=== PATIENT | female | born 1965 | race Caucasian/White ===

== ENCOUNTER 2016-09-17 04:46 | Inpatient (IN) | payer OTHER ==
[2016-09-06 08:25] VITALS: BMI 42.0
--- NOTE | 2016-09-06 08:49 | PAT Medication Instructions ---
Service Date Sep 06, 2016. Current Home Medication List Calcium/Vitamin D (Os-Vladimir 500 Plus D), 1 TAB PO BID Docusate Sodium (Colace), 2 CAP PO BID Fluoxetine (Prozac), 20 MG PO QAM Levothyroxine Sodium (Levothyroxine Sodium), 1 TAB PO AFTERNOON Lisinopril (Zestril), 5 MG PO QAM Magnesium Oxide (Mag-Ox), 1,600 MG PO AFTERNOON Meloxicam (Meloxicam), 15 MG PO QAM Metformin Hcl (Glucophage), 250 MG PO BID Ondansetron Hcl (Zofran), 4 MG PO BID PRN for Nausea Oxycodone Ir (Roxicodone Ir), 1-2 TAB PO Q4H PRN for Severe Pain Sumatriptan Succinate (Imitrex), 100 MG PO PRN PRN for Migraine Tacrolimus (Prograf), 2 TAB PO QAM Tacrolimus (Prograf), 1 MG PO HS Medication Instructions For Your Scheduled Surgery - Hold the following medications 48 hours prior to surgery: Metformin Hcl (Glucophage), 250 MG PO BID - Hold the following medications the morning of surgery: Calcium/Vitamin D (Os-Vladimir 500 Plus D), 1 TAB PO BID Docusate Sodium (Colace), 2 CAP PO BID Lisinopril (Zestril), 5 MG PO QAM Meloxicam (Meloxicam), 15 MG PO QAM - Take the following medications the morning of surgery with a sip of water OTHERWISE NOTHING TO EAT OR DRINK AFTER MIDNIGHT: Tacrolimus (Prograf), 2 TAB PO QAM Fluoxetine (Prozac), 20 MG PO QAM Sumatriptan Succinate (Imitrex), 100 MG PO PRN PRN for Migraine Oxycodone Ir (Roxicodone Ir), 1-2 TAB PO Q4H PRN for Severe Pain (may take if needed up to 4 hours prior to surgery) Ondansetron Hcl (Zofran), 4 MG PO BID PRN for Nausea - Take the following medications as scheduled the evening before surgery: Tacrolimus (Prograf), 1 MG PO HS Levothyroxine Sodium (Levothyroxine Sodium), 1 TAB PO AFTERNOON Calcium/Vitamin D (Os-Vladimir 500 Plus D), 1 TAB PO BID Docusate Sodium (Colace), 2 CAP PO BID Sumatriptan Succinate (Imitrex), 100 MG PO PRN PRN for Migraine Oxycodone Ir (Roxicodone Ir), 1-2 TAB PO Q4H PRN for Severe Pain Ondansetron Hcl (Zofran), 4 MG PO BID PRN for Nausea Magnesium Oxide (Mag-Ox), 1,600 MG PO AFTERNOON If you have any questions please call us at [phone] (Priyanka Pittman PA-C ) or [phone] or [phone]
--- NOTE | 2016-09-06 09:34 | DIAGNOSTIC IMAGING REPORT ---
TWO VIEW CHEST CLINICAL HISTORY: Preoperative examination. FINDINGS: PA and lateral chest radiographs are obtained. No prior studies are available for comparison at the time of dictation. The heart appears enlarged. The mediastinal contour is within normal limits. The pulmonary vasculature is noncongested. There is mild bibasilar atelectasis. The lungs and pleural spaces are otherwise clear. There is no pneumothorax. The skeletal structures are osteopenic. Mild degenerative change is noted throughout the thoracic spine. Surgical clips are seen throughout the upper abdomen. IMPRESSION: Cardiac enlargement with no active disease in the chest. Electronically signed by: Jb Stahl M.D. 09/06/2016 9:32 AM Dictated Date/Time: 09/06/2016 9:29 AM
[2016-09-06 09:39] LABS: BASO % 0.5 %; BASO ABS # 0.02 K/uL (0-0.2); COMPLETE YES; EOS % 6.5 %; HEMATOCRIT 37.3 % (37-47); LYMPH % 25.1 %; LYMPH ABS # 1.09 K/uL (1.2-3.4); MEAN CELL VOLUME 91.2 fL (80-100); MEAN CORPUSCULAR HGB CONC 35.1 g/dl (32-36); MEAN PLATELET VOLUME 10.1 fL (7.4-10.4); MONO % 11.1 %; NEUT % 56.8 %; PLATELET COUNT 135 K/uL (130-400); RED BLOOD COUNT 4.09 M/uL (4.2-5.4); WHITE BLOOD COUNT 4.34 K/uL (4.8-10.8)
[2016-09-06 10:15] LABS: BUN/CREATININE RATIO 8.5 (10-20); CALCIUM 9.5 mg/dl (8.5-10.1); CREATININE 1.3 mg/dl (0.60-1.20); POTASSIUM 4.6 mmol/L (3.5-5.1)
[2016-09-06 10:28] LABS: URINE APPEARANCE CLEAR (CLEAR); URINE BILIRUBIN NEG (NEG); URINE COLOR YELLOW; URINE EPITHELIAL CELL AUTO >30 /lpf (0-5); URINE NITRITE NEG (NEG); URINE PH 6.5 (4.5-7.5); URINE SPECIFIC GRAVITY 1.004 (1.000-1.030); UROBILINOGEN NEG (NEG)
[2016-09-06 10:32] LABS: MANUAL MICROSCOPIC REQUIRED? NO; REVIEW REQ? NO
[~2016-09-17] VITALS: Ht 165.1 cm; Wt 115.0 kg
[2016-09-17] VITALS (17 sets, daily range): BP systolic 112–159; BP diastolic 73–88; PULSE 61–84; TEMP 36.6–37.2; O2SAT 95–99; Ht 165.1 cm; Wt 115.0 kg
[~2016-09-17 04:46] MED LIST: CALC500C70 PO; DOCU-94 PO; FLUO20CA35 PO; GLC/500 PO; LEVO125T4 PO; LISI-729 PO; MAGN400T6 PO; MELO15TA4 PO; ONDA4TAB46 PO; OXYC1TAB3 PO; SUMA100T16 PO; TACR1CAP PO
[2016-09-17] MEDS ORDERED: CeleBREX 200 MG CAP PO SCH (06:00)
[2016-09-17] MEDS ORDERED: PREGABALIN 75 MG CAP PO SCH (06:00)
[2016-09-17] MEDS ORDERED: LACTATED RINGER'S 1000ML 1,000 ML IV SCH (06:00)
[2016-09-17] MEDS ORDERED: SCOPOLAMINE 1.5 MG TDSY TD SCH (06:00)
[2016-09-17] MEDS ORDERED: CEFAZOLIN 2000 MG/60 ML D5W IV SCH (06:00)
[2016-09-17] MEDS ORDERED: DEXAMETHASONE SOD INJ 4 MG/ML VIAL ONE (06:30)
[2016-09-17] MEDS ORDERED: ONDANSETRON INJ 2 MG/ML 2 ML VIAL ONE ×2 (06:30→08:58)
[2016-09-17] MEDS ORDERED: FENTANYL CITRATE INJ 50 MCG/1 ML 2 ML VIAL ONE ×2 (06:31→09:26)
[2016-09-17] MEDS ORDERED: PROPOFOL IV EMULSION 10 MG/ML 20 ML VIAL IV ONE (06:31)
[2016-09-17] MEDS ORDERED: MIDAZOLAM HCL 1 MG/ML 2ML VIAL ONE (06:31)
[2016-09-17] MEDS ORDERED: NEOSTIGMINE METHYLSULFATE 1 MG/ML 10ML VIAL ONE (06:31)
[2016-09-17] MEDS ORDERED: GLYCOPYRROLATE INJ 0.2 MG/ML VIAL ONE ×2 (06:31→08:58)
[2016-09-17] MEDS ORDERED: ROCURONIUM BROMIDE 10 MG/ML 5 ML VIAL ONE (06:31)
[2016-09-17] MEDS ORDERED: ONDANSETRON INJ 2 MG/ML 2 ML VIAL IV PRN ×2 (07:15→10:00)
[2016-09-17] MEDS ORDERED: ATROPINE SULFATE 0.1 MG/ML 5ML SYR IV PRN (07:15)
[2016-09-17] MEDS ORDERED: EpHEDrine SULFATE INJ 50 MG/ML AMP IV PRN (07:15)
--- NOTE | 2016-09-17 07:30 | History and Physical ---
History & Physical Date Sep 17, 2016. Chief Complaint neck pain and L arm pain History of Present Illness The patient is a 50 year old female with complaints of above who failed outpatient treatment over years who desires surgical correction. no myelopathic symptoms. MRI shows C6-7 stenosis, C5-6 DDD. no cord compression. numbness in L arm-intermittent. Past Medical/Surgical History Medical Problems: (1) DDD (degenerative disc disease) liver transplant CLAUDIA erica alpha 1 antitrypsin deficiency lumbar fusion ankle ORIF OA DM type II Additional History Hepatic Disease: No Endocrine Disorder: No Kidney Disease: No Hypertension: Yes Heart Disease: No Bleeding Tendencies: No Infectious Diseases: No Allergies Coded Allergies: Adhesives (Verified Allergy, Mild, RED ITCHY, 09/17/16) Aspartame (Verified Allergy, Mild, SEIZURE, 09/17/16) Perflutren (Verified Allergy, Mild, MASSIVE BACK PAIN, 09/17/16) Propylene Glycol (Verified Allergy, Mild, MASSIVE BACK PAIN, 09/17/16) Home Medications Scheduled Calcium/Vitamin D (Os-Vladimir 500 Plus D), 1 TAB PO BID Docusate Sodium (Colace), 2 CAP PO BID Fluoxetine (Prozac), 20 MG PO QAM Levothyroxine Sodium (Levothyroxine Sodium), 1 TAB PO AFTERNOON Lisinopril (Zestril), 5 MG PO QAM Magnesium Oxide (Mag-Ox), 1,600 MG PO AFTERNOON Meloxicam (Meloxicam), 15 MG PO QAM Metformin Hcl (Glucophage), 250 MG PO BID Tacrolimus (Prograf), 2 TAB PO QAM Tacrolimus (Prograf), 1 MG PO HS Scheduled PRN Ondansetron Hcl (Zofran), 4 MG PO BID PRN for Nausea Oxycodone Ir (Roxicodone Ir), 1-2 TAB PO Q4H PRN for Severe Pain Sumatriptan Succinate (Imitrex), 100 MG PO PRN PRN for Migraine Physical Examination Skin: warm/dry Eyes: normal inspection, sclerae normal ENT: normal ENT inspection Head: normocephalic, atraumatic Neck: supple, trachea midline Respiratory/Chest: lungs clear, no respiratory distress Cardiovascular: regular rate, rhythm Extremities: normal inspection, normal range of motion Neurologic/Psych: no motor/sensory deficits, alert, normal reflexes, oriented x 3 Diagnosis C5-7 stenosis/DDD Plan of Treatment C5-7 ACDF
[2016-09-17 08:23] LABS: PARTIAL THROMBOPLASTIN RATIO 1.1; PROTHROMBIN TIME (PATIENT) 10.9 SECONDS (9.0-12.0)
[2016-09-17] MEDS ORDERED: EpHEDrine SULFATE 50MG/5ML SYR ONE (09:06)
[2016-09-17] MEDS ORDERED: FLOSEAL HEMOSTATIC MATRIX 5ML TOP ONE (09:48)
[2016-09-17] MEDS ORDERED: BACITRACIN 50000 UNIT VIAL IR ONE (09:48)
--- NOTE | 2016-09-17 09:51 | [facility] Post Operative Brief Note ---
Immediate Operative Summary Operative Date Sep 17, 2016. Pre-Operative Diagnosis C5-C7 Degenerative disc disease and stenosis Post-Operative Diagnosis same as preop Procedure(s) Performed C5-C7 Anterior Cervical Discectomy and Fusion with Allograft Surgeon Dr. Bryon Parsons Manager Inventory Surgeon(s) Elliott Souza PA-C Estimated Blood Loss 75ML Findings dict Specimens none
[2016-09-17] MEDS ORDERED: OXYC1TAB3 PO (09:58)
--- NOTE | 2016-09-17 09:59 | Discharge Instructions ---
Discharge Instructions Admission Reason for Admission: Cervical Spinal Stenosis Discharge Discharge Diagnosis / Problem: Cervical Stenosis Discharge Goals Goal(s): Decrease discomfort, Improve function, Increase independence Activity Recommendations Activity Limitations: as noted below Lifting Limitations: no more than 5 pounds Exercise/Sports Limitations: until after follow-up appointment May Resume Sexual Activity: after follow-up appointment Shower/Bathe: may shower/bathe in 3 days . Instructions / Follow-Up Instructions / Follow-Up ACTIVITY RECOMMENDATIONS: SELF CARE INSTRUCTIONS AFTER CERVICAL FUSIONS 1. No smoking. Smoking drastically decreases the chance of a solid fusion. 2. No bending, lifting more than 5 pounds, or twisting (roll like a log when turning in bed). 3. You may shower 3 days after surgery. Thoroughly dry wound. Do not soak in the tub. 4. Cervical collar: Must be worn at all times including sleeping. You may remove the brace only to bath, eat and if you are sitting in a recliner. 5. Please walk as much as you can for exercise. Gradually increase the distance that you walk as your endurance increases. SPECIAL CARE INSTRUCTIONS: VERY IMPORTANT TO READ AND REVIEW A. Do not take any anti-inflammatory medications (i.e. Indocin, Advil, Aspirin, Naprosyn, Aleve, Motrin, etc.) as these may inhibit the chance of a solid fusion. Tylenol is okay to take. B. Your surgical incision has been closed with a cosmetic suture under the skin that will dissolve in about 6 weeks. In 14 days, you can use a pair of clean scissors and cut the suture that is left outside of the skin at the ends of your incision. C. Complications are uncommon, but please contact us if you have any signs or symptoms of: 1. wound infection (fever higher than 102.5 degrees F, redness, separation of wound, drainage, or increasing pain from the incision) 2. blood clots in legs (pain, swelling, redness and warmth in legs) 3. urinary tract infection (fever higher than 102.5 degrees, burning upon urination or increased frequency of urination) 4. nerve problems (inability to walk on your toes or heels, numbness, loss of bowel or bladder control) 5. any other symptoms that concern you. D. Please call the office at if you have any concerns or questions about your operation or recovery. MANAGING PAIN AFTER SPINAL SURGERY 1. Narcotic medication is intended for short-term use and will be provided for surgical pain. Surgical pain usually lasts for a period of 4-6 weeks. Narcotic medication includes Percocet, Vicodin, Darvocet, Tylenol #3 or Lortab. 2. Longer-term pain is more appropriately treated with non-narcotic medication such as Tylenol ES. 3. Muscle spasm is not appropriately treated with narcotics. Muscle relaxers such as Soma, Flexeril or Skelaxin can be used along with Tylenol ES. 4. Remember that we all live with some "aches and pains". This is not unusual or uncommon after an injury or as we get older. 5. We will provide appropriate medication within the normal guidelines of their prescribed use. We will also be very cautious and aware of potential abuse and extended duration of patients' medication needs. 6. Please allow 2-3 days to process refills. Prescriptions will not be mailed but must be picked up at the office. FOLLOW UP VISIT: Keep your scheduled follow-up appointment. Any questions, please call the office at . Current Hospital Diet Patient's current hospital diet: Diabetes Type 2 Diet Discharge Diet Recommended Diet: Regular Diet Procedures Procedures Performed: C5-C7 Anterior Cervical Discectomy and Fusion with Allograft Pending Studies Studies pending at discharge: no Medical Emergencies . Who to Call and When: Medical Emergencies: If at any time you feel your situation is an emergency, please call 911 immediately. . Non-Emergent Contact Non-Emergency issues call your: Surgeon Call Non-Emergent contact if: temperature is above 101, your pain is not controlled, your pain is worsening, your pain is unusual for you, your pain is concerning you . "Provider Documentation" section prepared by Elliott Souza. VTE Core Measure Inpt VTE Proph given/why not?: Abdoulaye Nicole
[2016-09-17] MEDS ORDERED: HYDROmorphone INJ 0.5 MG/0.5 ML SYR IV PRN (10:00)
[2016-09-17] MEDS ORDERED: DEXAMETHASONE INJ 8 MG in SYRINGE 0 ML IV PRN (10:00)
[2016-09-17] MEDS ORDERED: SUMATRIPTAN SUCC TAB 100 MG TAB PO PRN (10:00)
[2016-09-17] MEDS ORDERED: LORAZEPAM INJ 0.5 MG in SYRINGE 0.75 ML IV PRN (10:00)
[2016-09-17] MEDS ORDERED: NALOXONE HCL 0.4 MG/1 ML VIAL/CARP IV PRN (10:00)
[2016-09-17] MEDS ORDERED: RACEPINEPHRINE 2.25% NEBU SOLN 0.5 ML VIAL INH PRN (10:00)
[2016-09-17] MEDS ORDERED: LORAZEPAM 0.5 MG TAB PO PRN (10:00)
[2016-09-17] MEDS ORDERED: DiphenhydrAMINE HCL 50 MG/ML VIAL IV PRN (10:00)
[2016-09-17] MEDS: FENTANYL CITRATE INJ 50 MCG/1 ML 2 ML VIAL IV PRN ×4 (10:10→10:25)
[2016-09-17] MEDS: HYDROmorphone INJ 1 MG/ML SYR IV PRN ×8 (10:30→11:05)
--- NOTE | 2016-09-17 11:07 | Anesthesiology Progress Note ---
Anesthesia Post Op Note Date & Time Sep 17, 2016 at 11:06 Vital Signs Pain Intensity: 4.0 Vital Signs Past 12 Hours Date Time Temp Pulse Resp B/P Pulse Ox O2 Delivery O2 Flow Rate FiO2 09/17/16 10:49 67 16 95 09/17/16 10:49 66 16 09/17/16 10:48 149/94 09/17/16 10:44 65 19 09/17/16 10:44 65 19 93 09/17/16 10:43 147/78 09/17/16 10:39 67 23 93 09/17/16 10:39 68 23 09/17/16 10:38 142/75 09/17/16 10:34 70 13 09/17/16 10:34 70 13 98 09/17/16 10:33 148/77 09/17/16 10:29 69 18 97 09/17/16 10:29 70 18 09/17/16 10:28 145/88 09/17/16 10:24 64 17 09/17/16 10:24 71 17 97 09/17/16 10:23 165/81 09/17/16 10:19 71 16 09/17/16 10:19 72 16 98 09/17/16 10:18 154/103 09/17/16 10:14 70 18 98 09/17/16 10:14 69 18 09/17/16 10:13 161/98 09/17/16 10:09 69 13 09/17/16 10:09 72 13 100 09/17/16 10:08 159/93 09/17/16 10:04 76 16 09/17/16 10:04 76 16 100 09/17/16 10:04 36.6 79 14 154/92 100 Mask 10 09/17/16 05:54 37.2 61 18 159/82 97 Room Air Notes Mental Status: alert / awake / arousable, participated in evaluation Pt Amnestic to Procedure: Yes Nausea / Vomiting: adequately controlled Pain: adequately controlled Airway Patency, RR, SpO2: stable & adequate BP & HR: stable & adequate Hydration State: stable & adequate Anesthetic Complications: no major complications apparent
--- NOTE | 2016-09-17 11:11 | OPERATIVE REPORT ---
DATE OF OPERATION: 09/17/2016 PREOPERATIVE DIAGNOSES: 1. C5-C6, C6-C7 disc degeneration. 2. C5-C6 disc protrusion. 3. C6-C7 foraminal stenosis. POSTOPERATIVE DIAGNOSIS: Same. PROCEDURES: 1. Anterior cervical discectomy and fusion with application of PEEK intervertebral spacer, local autograft and DBM putty C5-C6. 2. Anterior cervical discectomy and fusion and application of PEEK intervertebral spacer with local autograft and DBM putty C6-C7. 3. Anterior cervical instrumentation C5-C6, C6-C7 with LDR anterior cervical blade plates. SURGEON: Dr. Parsons. ELECTRO MECHANICAL SOLAR TECHNICIAN: Elliott Souza PA-C. Please note he participated in all portions of the procedure and was critical for performance of the procedure, participated with positioning, prepping, draping, retraction and wound closure. ANESTHESIA: General endotracheal anesthesia. COMPLICATIONS: None. ESTIMATED BLOOD LOSS: Minimal. OPERATION AND FINDINGS: PROCEDURE: After identification of the patient and operative level, she was brought to the OR where she underwent induction of general anesthesia. She was then positioned supine on [facility] OR table with Sánchez horseshoe head sawyer automatic. The arms were tucked at the sides and well padded. Shoulders were taped distally and anterior neck was sterilely prepped and draped in usual fashion. Antibiotics were administered. Time-out was performed. Level was confirmed and transverse skin incision made on the right side of the neck at the level of the cricoid cartilage. I divided the platysma in line with the incision and performed routine anterior cervical exposure medial sternocleidomastoid and carotid sheath with blunt dissection. I identified the presumptive disc spaces, confirmed level with fluoroscopy and marked level with electrocautery. I mobilized longus colli and placed self-retaining cervical retractor deep to the longus colli. I put [place] pins in the body of C5 and C7 and applied distraction across the pins, reconfirmed level with fluoroscopy. I then did a complete discectomy at C5-C6 as well as C6-C7. I removed all disc material back to the posterior annulus, removed the posterior osteophytes with a high speed veronica and then completed discectomy by removing the posterior annulus and the PLL at C5-C6 and C6-C7. I performed foraminotomies as necessary and confirmed the nerve roots were decompressed by palpation with a nerve hook. I then applied FloSeal for hemostasis for epidural bleeding and then decorticated the endplates at C5-C6, C6-C7 with a high speed bur. I determined graft size with trial sizers. I then filled PEEK cages from LDR with local bone and DBM putty and tamped them into position. I then removed the [place] distraction pins, applied bone wax over the holes and inserted anterior cervical plate through the cages at C5-C6 and C6-C7 to anchor the cages into the bone. I then irrigated with bacitracin solution and confirmed hemostasis and obtained final x-rays. I then closed in layered fashion over a small round drain. All sponge and needle counts were correct at the end of the case. I attest to the content of the Intraoperative Record and any orders documented therein. Any exceptio ns are noted below.
--- NOTE | 2016-09-17 11:23 | DIAGNOSTIC IMAGING REPORT ---
Cervical SPINE, INTRAOPERATIVE FLUOROSCOPY HISTORY: ACDF C5 C7. FLUOROSCOPY TIME: 7 seconds. FINDINGS: Intraoperative fluoroscopy was provided for the cervical spine. 3 fluoroscopic spot images were obtained. Anterior cervical discectomy and fusion at C5-C6 and C6-C7. The hardware appears intact. IMPRESSION: Fluoroscopy provided for a anterior cervical discectomy and fusion at C5-C7. Electronically signed by: Kiel Hassan M.D. 09/17/2016 11:22 AM Dictated Date/Time: 09/17/2016 11:21 AM
[2016-09-17] MEDS ORDERED: IV FLUIDS COMPLETED PRN (11:45)
[2016-09-17] MEDS: SODIUM CHLORIDE 0.9% 1000ML 1,000 ML IV SCH (13:04)
[2016-09-17] MEDS ORDERED: GLUCOSE 10 TABS/TUBE PO PRN (13:30)
[2016-09-17] MEDS ORDERED: GLUCAGON FOR INJ 1 MG VIAL SQ PRN (13:30)
[2016-09-17] MEDS ORDERED: HydrALAZINE HCL 20 MG/ML VIAL IV. PRN (13:30)
[2016-09-17] MEDS ORDERED: GLUCOSE 40% GEL 15 GM TUBE PO PRN (13:30)
[2016-09-17] MEDS ORDERED: DEXTROSE 50% 50 ML SYR IV PRN (13:30)
--- NOTE | 2016-09-17 13:50 | Medical Consult ---
Consultation Date of Consultation: Sep 17, 2016. Attending Physician: Bryon Parsons M.D. Reason for Consultation: Medical management History of Present Illness This is a 50 y/o female with a history of alpha-1 antitrypsin deficiency, s/p liver transplant (2010), DM II, HTN, hypothyroidism, h/o ulcerative colitis, and anxiety/depression who presents s/p C5-C7 discectomy and fusion with Dr. Caldwell on 09/17 for medical management. The patient reports feeling well post operatively. She does report some mild soreness at the surgical site. She also complains of a mild non-productive cough and states that she feels like there is an irritation in her throat. She is currently eating lunch without difficulty. She has not urinated, passed gas or had a bowel movement yet. The patient denies fevers, chills, sweats, chest pain, palpitations, claudication, wheezing, shortness of breath, nausea, vomiting, abdominal pain, dysuria, hematuria, urinary retention, paralysis, weakness, numbness and tingling. Family History Cancer (colon, breast, lung) Diabetes mellitus Hypertension Myocardial infarction at age less than 60 Stroke Social History Smoking Status: Former Smoker (quit 16 years ago) Smokeless Tobacco Use: No Alcohol Use: none Drug Use: none Marital Status: Housing Status: lives with significant other Occupation Status: unemployed Allergies Coded Allergies: Adhesives (Verified Allergy, Mild, RED ITCHY, 09/17/16) Aspartame (Verified Allergy, Mild, SEIZURE, 09/17/16) Perflutren (Verified Allergy, Mild, MASSIVE BACK PAIN, 09/17/16) Propylene Glycol (Verified Allergy, Mild, MASSIVE BACK PAIN, 09/17/16) Current Inpatient Medications Current Inpatient Medications Medications (Trade) Dose Ordered Sig/Flor Route Start Time Stop Time Status Last Admin Dose Admin Cefazolin Sodium 60 ml @ 100 mls/hr PREOP IV 09/17/16 06:00 09/17/16 18:00 Lactated Ringer's (Lr 1000ml) 1,000 ml @ 15 mls/hr Q24H IV 09/17/16 06:00 09/17/16 18:00 Celecoxib (CeleBREX CAP) 200 mg PREOP PO 09/17/16 06:00 09/17/16 18:00 09/17/16 06:15 200 MG Pregabalin (Lyrica Cap) 75 mg PREOP PO 09/17/16 06:00 09/17/16 18:00 09/17/16 06:15 75 MG Scopolamine (Transderm-Scop Patch) 1.5 mg PREOP TD 09/17/16 06:00 09/17/16 15:00 09/17/16 06:14 1.5 MG Miscellaneous (Remove Transderm-Scop Patch) 1 ea Q72H N/A 09/20/16 06:00 09/20/16 06:01 Miscellaneous Information (Check Scopolamine Patch Placement) 1 ea QS N/A 09/17/16 16:00 09/19/16 05:59 Fluoxetine HCl (Prozac Cap) 20 mg QAM PO 09/18/16 09:00 10/18/16 08:59 Levothyroxine Sodium (Synthroid Tab) 125 mcg DAILYBB PO 09/18/16 06:00 10/18/16 05:59 Lisinopril (Zestril Tab) 5 mg QAM PO 09/18/16 09:00 10/18/16 08:59 Sumatriptan Succinate (Imitrex Tab) 100 mg DAILY PRN PO 09/17/16 10:00 10/17/16 09:59 Tacrolimus (Prograf Cap) 1 mg HS PO 09/17/16 21:00 10/17/16 20:59 Tacrolimus (Prograf Cap) 2 mg QAM PO 09/18/16 09:00 10/18/16 08:59 Racepinephrine (Raccemic Epinephrine 2.25% 0.5ML Neb) 0.5 ml ONE PRN INH 09/17/16 10:00 10/17/16 09:59 Hydromorphone HCl (Dilaudid Inj) 0.5mg IV for moder... Q3H PRN IV 09/17/16 10:00 10/01/16 09:59 Ondansetron HCl 4 mg 4 mg Q6 PRN IV 09/17/16 10:00 10/17/16 09:59 Cefazolin Sodium/ Dextrose (Ancef Iv/D5 50ml) 55 ml @ 100 mls/hr Q8H IV 09/17/16 16:00 09/18/16 08:32 Lorazepam 0.5 mg 0.5 mg Q8H PRN PO 09/17/16 10:00 10/17/16 09:59 Lorazepam/Syringe (Ativan Inj/ Syringe) 1 ml @ 1 mls/min Q8H PRN IV 09/17/16 10:00 10/17/16 09:59 Diphenhydramine HCl 25 mg 25 mg Q6H PRN IV 09/17/16 10:00 10/17/16 09:59 Dexamethasone Sodium Phosphate 6 mg/Syringe 1.5 ml @ 1 mls/min Q8H IV 09/17/16 16:00 09/18/16 08:02 Sodium Chloride (Nss 1000ml) 1,000 ml @ 80 mls/hr [id number] IV 09/17/16 12:30 09/18/16 12:29 09/17/16 13:04 80 MLS/HR Oxycodone HCl 5mg for pain scale 4-6 1... Q4H PRN PO 09/17/16 10:00 10/01/16 09:59 Dexamethasone Sodium Phosphate/ Syringe (Decadron Inj/ Syringe) 2 ml @ 1 mls/min ONE PRN IV 09/17/16 10:00 10/17/16 09:59 Naloxone HCl (Narcan Inj) 0.1 mg Q5M PRN IV 09/17/16 10:00 10/17/16 09:59 Miscellaneous (Iv Fluids Completed) 1 ea PRN PRN N/A 09/17/16 11:45 09/17/17 11:44 Review of Systems See HPI for pertinent positives and negatives. All other systems reviewed and negative. Physical Exam Date Time Temp Pulse Resp B/P Pulse Ox O2 Delivery O2 Flow Rate FiO2 09/17/16 12:35 36.6 73 16 151/79 99 Nasal Cannula 2.0 09/17/16 12:31 73 16 151/79 99 Nasal Cannula 2.0 09/17/16 12:10 71 16 98 Nasal Cannula 2.0 09/17/16 12:08 95 Nasal Cannula 2.0 09/17/16 12:05 67 16 157/82 97 Nasal Cannula 2.0 Humidified Air 09/17/16 12:05 67 16 151/82 97 Nasal Cannula 3.0 09/17/16 11:35 36.6 66 16 158/84 95 Nasal Cannula 2.0 09/17/16 11:35 36.6 66 16 158/84 95 Nasal Cannula 2.0 09/17/16 11:35 95 Nasal Cannula 2.0 Humidified Oxygen 09/17/16 11:23 151/83 09/17/16 11:21 75 13 96 09/17/16 11:21 74 13 09/17/16 11:18 136/76 09/17/16 11:16 64 16 94 09/17/16 11:16 63 16 09/17/16 11:15 36.4 65 16 143/68 95 Nasal Cannula 2 09/17/16 11:13 143/68 09/17/16 11:11 63 18 09/17/16 11:11 63 18 95 09/17/16 11:10 63 19 94 09/17/16 11:10 64 19 09/17/16 11:08 140/80 09/17/16 11:05 63 18 95 09/17/16 11:05 63 18 09/17/16 11:03 143/77 09/17/16 11:00 70 14 09/17/16 11:00 70 14 96 09/17/16 10:58 135/79 09/17/16 10:55 61 21 09/17/16 10:55 61 21 93 09/17/16 10:53 133/83 09/17/16 10:50 68 14 95 09/17/16 10:50 66 14 09/17/16 10:49 67 16 95 09/17/16 10:49 66 16 09/17/16 10:48 149/94 09/17/16 10:44 65 19 09/17/16 10:44 65 19 93 09/17/16 10:43 147/78 09/17/16 10:39 67 23 93 09/17/16 10:39 68 23 09/17/16 10:38 142/75 09/17/16 10:34 70 13 09/17/16 10:34 70 13 98 09/17/16 10:33 148/77 09/17/16 10:29 69 18 97 09/17/16 10:29 70 18 09/17/16 10:28 145/88 09/17/16 10:24 64 17 09/17/16 10:24 71 17 97 09/17/16 10:23 165/81 09/17/16 10:19 71 16 1/31/17 10:19 72 16 98 09/17/16 10:18 154/103 09/17/16 10:14 70 18 98 09/17/16 10:14 69 18 09/17/16 10:13 161/98 09/17/16 10:09 69 13 09/17/16 10:09 72 13 100 09/17/16 10:08 159/93 09/17/16 10:04 76 16 09/17/16 10:04 76 16 100 09/17/16 10:04 36.6 79 14 154/92 100 Mask 10 09/17/16 05:54 37.2 61 18 159/82 97 Room Air General Appearance: WD/WN, no apparent distress, + obese (morbidly obese) Head: normocephalic, atraumatic Eyes: normal inspection, PERRL, EOMI ENT: normal ENT inspection, hearing grossly normal, pharynx normal Neck: supple, no JVD, trachea midline Respiratory/Chest: lungs clear, normal breath sounds, no respiratory distress Cardiovascular: regular rate, rhythm, no gallop, no murmur Abdomen/GI: normal bowel sounds, non tender, soft Extremities/Musculoskelatal: normal inspection, no calf tenderness, no pedal edema Neurologic/Psych: alert, normal mood/affect, oriented x 3 Skin: normal color, warm/dry, no rash Laboratory Results Last 24 Hours Test 09/17/16 05:36 09/17/16 07:40 09/17/16 07:50 09/17/16 10:14 Bedside Glucose 119 mg/dl 146 mg/dl Total Bilirubin 0.4 mg/dl Direct Bilirubin 0.1 mg/dl Aspartate Amino Transf (AST/SGOT) 15 U/L Alanine Aminotransferase (ALT/SGPT) 12 U/L Alkaline Phosphatase 90 U/L Total Protein 6.7 gm/dl Albumin 3.6 gm/dl Prothrombin Time 10.9 SECONDS Prothromb Time International Ratio 1.0 Activated Partial Thromboplast Time 27.7 SECONDS Partial Thromboplastin Ratio 1.1 Test 09/17/16 11:57 09/17/16 13:30 Bedside Glucose 168 mg/dl Assessment & Plan 50 y/o female with a history of alpha-1 antitrypsin deficiency, s/p liver transplant (2010), DM II, HTN, hypothyroidism, h/o ulcerative colitis, and anxiety/depression who presents s/p C5-C7 discectomy and fusion with Dr. Caldwell on 09/17 for medical management. -Pain management, DVT prophylaxis, and PT/OT as per primary team -Cough/throat irritation likely secondary to ET tube S/p liver transplant secondary to alpha-1 antitrypsin deficiency -Continue tacrolimus 2 mg PO qam and 1 mg PO qhs Diabetes mellitus type 2--no HgbA1c on EMR -Hold metformin -Insulin sliding scale -Check BSGs q ac and qhs -Check HgbA1c HTN -Hold lisinopril until renal function checked/stable -Cover with hydralazine 10 mg IV q6h prn SBP >180 Hypothyroidism -Continue Synthroid 125 mcg PO qd Anxiety/depression -Continue Prozac 20 mg PO qd Thank you for this consultation. We will continue to follow. Attending Attestation: Pt seen/examined, chart reviewed, and care plan d/w PA Alexandria Glover. I agree with the ellis components of her consult documentation. 50yo female with h/o ESLD s/p liver transplant in 2010 on chronic prograf, alpha 1 antitrypsin deficiency, T2DM, HTN who underwent elective c-spine diskectomy and fusion today by Dr. Parsons. During my visit she denied sob, chest pain, abdominal pain, nausea or emesis. PMH, PSH, allergies, meds, sochx, famhx, ros - reviewed VSS, afebrile gen - NAD neck - c-collar in place heart - RRR lungs - CTA b/l abd - soft ext - no edema A/P: 1. s/p cervical spine fusion/diskectomy 2. acute kidney injury - post-op Cr of 1.6. Hydrate with NS. stop any potentially nephrotoxic meds; hold JOHNNY. repeat BMP am. 3. T2DM - novolog sliding scale for now with low threshold for lantus. 4. s/p liver transplant - cont prograf. If creatinine was to worsen further would need to contact online marketing coordinator as this med would need renal adjustment. Kevin Thornton MD
[2016-09-17] MEDS: OXYCODONE HCL IR 5 MG TAB (IMMEDIATE RELEASE) PO PRN ×3 (14:19→22:40)
[2016-09-17] MEDS ORDERED: INFLUENZA VIRUS QUAD VACCINE 0.5 ML SYR IM. ONE (14:30)
[2016-09-17] MEDS ORDERED: INFLUENZA ADMINISTRATION CHARGE ONE (14:30)
[2016-09-17 14:36] LABS: COMPLETE YES; EOS % 0.3 %; HEMATOCRIT 36.9 % (37-47); IG% 0.1 %; LYMPH % 6.1 %; LYMPH ABS # 0.45 K/uL (1.2-3.4); MEAN CELL VOLUME 90.7 fL (80-100); MEAN CORPUSCULAR HEMOGLOBIN 31.2 pg (25-34); MEAN CORPUSCULAR HGB CONC 34.4 g/dl (32-36); MEAN PLATELET VOLUME 9.5 fL (7.4-10.4); MONO % 2.4 %; NEUT % 91.1 %; PLATELET COUNT 134 K/uL (130-400); RED BLOOD COUNT 4.07 M/uL (4.2-5.4); WHITE BLOOD COUNT 7.36 K/uL (4.8-10.8)
[2016-09-17 14:42] LABS: ESTIMATED AVERAGE GLUCOSE 111 mg/dl; HA1C FLAG Normal (Normal)
[2016-09-17 15:02] LABS: BUN/CREATININE RATIO 6.4 (10-20); CALCIUM 8.2 mg/dl (8.5-10.1); CREATININE 1.6 mg/dl (0.60-1.20); POTASSIUM 4.8 mmol/L (3.5-5.1)
[2016-09-17] MEDS: CEFAZOLIN IV 1,000 MG in DEXTROSE 5% 50ML 50 ML IV SCH (15:45)
[2016-09-17] MEDS: DEXAMETHASONE INJ 6 MG in SYRINGE 0 ML IV SCH (15:46)
[2016-09-17] MEDS: CHECK SCOPOLAMINE PATCH PLACEMENT SCH (15:55)
[2016-09-17] MEDS: INSULIN ASPART 100 UNITS/ML 3 ML PEN SC SCH ×2 (17:35→21:00)
[2016-09-17] MEDS ORDERED: TACROLIMUS 1 MG CAP PO SCH (21:00)
[2016-09-18] VITALS (11 sets, daily range): BP systolic 129–167; BP diastolic 71–91; PULSE 51–70; TEMP 36.6–36.8; O2SAT 94–98
[2016-09-18] MEDS: SODIUM CHLORIDE 0.9% 1000ML 1,000 ML IV SCH (00:37)
[2016-09-18] MEDS: CEFAZOLIN IV 1,000 MG in DEXTROSE 5% 50ML 50 ML IV SCH ×2 (00:37→07:07)
[2016-09-18] MEDS: DEXAMETHASONE INJ 6 MG in SYRINGE 0 ML IV SCH ×2 (00:38→07:08)
[2016-09-18] MEDS: OXYCODONE HCL IR 5 MG TAB (IMMEDIATE RELEASE) PO PRN ×2 (04:02→11:56)
[2016-09-18 05:49] LABS: HEMATOCRIT 35.2 % (37-47); MEAN CELL VOLUME 89.6 fL (80-100); MEAN CORPUSCULAR HEMOGLOBIN 31.3 pg (25-34); MEAN CORPUSCULAR HGB CONC 34.9 g/dl (32-36); PLATELET COUNT 138 K/uL (130-400); RED BLOOD COUNT 3.93 M/uL (4.2-5.4); WHITE BLOOD COUNT 8.75 K/uL (4.8-10.8)
[2016-09-18] MEDS ORDERED: LEVOTHYROXINE 125 MCG TAB PO SCH (06:00)
[2016-09-18 06:16] LABS: BUN/CREATININE RATIO 7.9 (10-20); CALCIUM 8.3 mg/dl (8.5-10.1); CREATININE 1.4 mg/dl (0.60-1.20)
--- NOTE | 2016-09-18 07:03 | Orthopedic Progress Note ---
Orthopedic Progress Note Date of Service Sep 18, 2016. Subjective Additional Notes: Doing well, no issues, stable night Objective N/V intact, dressing C/D/I, A&O x3, toes mobile Date Time Temp Pulse Resp B/P Pulse Ox O2 Delivery O2 Flow Rate FiO2 09/18/16 06:34 36.6 59 16 147/82 94 Room Air 09/18/16 04:34 36.7 58 18 151/83 96 Nasal Cannula 2.0 Humidified Oxygen 09/18/16 03:32 59 14 98 Nasal Cannula 2.0 09/18/16 02:30 36.6 65 14 138/82 98 Nasal Cannula 2.0 09/18/16 02:30 36.6 65 18 138/82 96 Nasal Cannula 2.0 Humidified Oxygen 09/18/16 00:30 36.7 60 16 129/78 97 Nasal Cannula 2.0 Humidified Oxygen 09/18/16 00:30 97 Nasal Cannula 2.0 Humidified Oxygen 09/17/16 23:29 62 14 96 Nasal Cannula 2.0 09/17/16 22:31 36.7 64 16 130/75 97 Nasal Cannula 2.0 Humidified Oxygen 09/17/16 20:30 Nasal Cannula 2.0 Humidified Oxygen 09/17/16 20:30 36.7 65 16 124/75 96 Nasal Cannula 2.0 Humidified Oxygen 09/17/16 19:51 76 14 96 Nasal Cannula 2.0 09/17/16 18:35 36.7 84 16 135/77 97 Nasal Cannula 2.0 09/17/16 18:35 36.7 84 16 135/77 97 Nasal Cannula 2.0 Humidified Oxygen 09/17/16 16:37 36.6 80 16 112/73 96 Nasal Cannula 2.0 Humidified Oxygen 09/17/16 16:28 36.6 80 16 112/73 96 Nasal Cannula 2.0 Humidified Oxygen 09/17/16 15:16 66 16 96 Nasal Cannula 2.0 09/17/16 14:35 36.6 79 16 153/73 96 Nasal Cannula 2.0 Humidified Air 09/17/16 14:35 36.6 79 16 153/73 96 Nasal Cannula 2.0 Humidified Air 09/17/16 13:37 36.6 64 16 133/88 97 Nasal Cannula 2.0 Humidified Oxygen 09/17/16 13:34 36.6 64 16 133/88 97 Nasal Cannula 2.0 Humidified Oxygen 09/17/16 12:35 36.6 73 16 151/79 99 Nasal Cannula 2.0 09/17/16 12:31 73 16 151/79 99 Nasal Cannula 2.0 09/17/16 12:10 71 16 98 Nasal Cannula 2.0 09/17/16 12:08 95 Nasal Cannula 2.0 09/17/16 12:05 67 16 157/82 97 Nasal Cannula 2.0 Humidified Air 09/17/16 12:05 67 16 151/82 97 Nasal Cannula 3.0 09/17/16 11:35 36.6 66 16 158/84 95 Nasal Cannula 2.0 09/17/16 11:35 36.6 66 16 158/84 95 Nasal Cannula 2.0 09/17/16 11:35 95 Nasal Cannula 2.0 Humidified Oxygen 09/17/16 11:23 151/83 09/17/16 11:21 75 13 96 09/17/16 11:21 74 13 09/17/16 11:18 136/76 09/17/16 11:16 64 16 94 09/17/16 11:16 63 16 09/17/16 11:15 36.4 65 16 143/68 95 Nasal Cannula 2 09/17/16 11:13 143/68 09/17/16 11:11 63 18 09/17/16 11:11 63 18 95 09/17/16 11:10 63 19 94 09/17/16 11:10 64 19 09/17/16 11:08 140/80 09/17/16 11:05 63 18 95 09/17/16 11:05 63 18 09/17/16 11:03 143/77 09/17/16 11:00 70 14 09/17/16 11:00 70 14 96 09/17/16 10:58 135/79 09/17/16 10:55 61 21 09/17/16 10:55 61 21 93 09/17/16 10:53 133/83 09/17/16 10:50 68 14 95 09/17/16 10:50 66 14 09/17/16 10:49 67 16 95 09/17/16 10:49 66 16 09/17/16 10:48 149/94 09/17/16 10:44 65 19 09/17/16 10:44 65 19 93 09/17/16 10:43 147/78 09/17/16 10:39 67 23 93 09/17/16 10:39 68 23 09/17/16 10:38 142/75 09/17/16 10:34 70 13 09/17/16 10:34 70 13 98 09/17/16 10:33 148/77 09/17/16 10:29 69 18 97 09/17/16 10:29 70 18 09/17/16 10:28 145/88 09/17/16 10:24 64 17 09/17/16 10:24 71 17 97 09/17/16 10:23 165/81 09/17/16 10:19 71 16 09/17/16 10:19 72 16 98 09/17/16 10:18 154/103 09/17/16 10:14 70 18 98 09/17/16 10:14 69 18 09/17/16 10:13 161/98 09/17/16 10:09 69 13 09/17/16 10:09 72 13 100 09/17/16 10:08 159/93 09/17/16 10:04 76 16 09/17/16 10:04 76 16 100 09/17/16 10:04 36.6 79 14 154/92 100 Mask 10 Laboratory Results 24 Hours: Test 09/17/16 07:50 09/17/16 14:27 09/18/16 05:03 Prothromb Time International Ratio 1.0 Prothrombin Time 10.9 SECONDS White Blood Count 7.36 K/uL Red Blood Count 4.07 M/uL Hemoglobin 12.7 g/dL 12.3 g/dL Hematocrit 36.9 % 35.2 % Mean Corpuscular Volume 90.7 fL Mean Corpuscular Hemoglobin 31.2 pg Mean Corpuscular Hemoglobin Concent 34.4 g/dl Platelet Count 134 K/uL Mean Platelet Volume 9.5 fL Neutrophils (%) (Auto) 91.1 % Lymphocytes (%) (Auto) 6.1 % Monocytes (%) (Auto) 2.4 % Eosinophils (%) (Auto) 0.3 % Basophils (%) (Auto) 0.0 % Neutrophils # (Auto) 6.70 K/uL Lymphocytes # (Auto) 0.45 K/uL Monocytes # (Auto) 0.18 K/uL Eosinophils # (Auto) 0.02 K/uL Basophils # (Auto) 0.00 K/uL Assessment & Plan Assessment: s/p cervical fusion Plan: Doing well, discharge home today
[2016-09-18] MEDS: CHECK SCOPOLAMINE PATCH PLACEMENT SCH ×3 (07:04→16:46)
[2016-09-18] MEDS: INSULIN ASPART 100 UNITS/ML 3 ML PEN SC SCH ×2 (08:47→11:56)
[2016-09-18] MEDS ORDERED: TACROLIMUS 1 MG CAP PO SCH (09:00)
[2016-09-18] MEDS ORDERED: LISINOPRIL 5 MG TAB PO SCH (09:00)
[2016-09-18] MEDS ORDERED: FLUOXETINE HCL 20 MG CAP PO SCH (09:00)
--- NOTE | 2016-09-18 12:32 | Hospitalist Progress Note ---
Hospitalist Progress Note Date of Service Sep 18, 2016. (Alexandria Glover ., CAYLAC) Subjective Pt evaluation today including: conversation w/ patient, physical exam, chart review, lab review, conversation w/ data governance consultant (spoke with Dr. Ordonez), review of inpatient medication list PO Intake: Tolerating PO diet Voiding: no voiding problems Patient reports feeling well. She does complain of some soreness in her neck but otherwise denies any complaints. She is tolerating a PO diet well. She is urinating without difficulties and passing gas. She has not yet had a bowel movement. The patient denies fevers, chills, sweats, chest pain, palpitations, claudication, cough, wheezing, shortness of breath, nausea, vomiting, abdominal pain, dysuria, hematuria, urinary retention, paralysis, weakness, numbness and tingling. Additional Comments: See HPI for pertinent positives and negatives. All other systems reviewed and negative. (Alexandria Glover ., KEEGAN-C) Objective Vital Signs Date Time Temp Pulse Resp B/P Pulse Ox O2 Delivery O2 Flow Rate FiO2 09/18/16 11:37 36.6 52 19 167/91 96 Room Air 09/18/16 11:23 56 14 95 Room Air 09/18/16 08:32 36.8 51 14 95 Room Air 09/18/16 07:51 51 14 95 Room Air 09/18/16 07:32 Room Air 09/18/16 07:05 36.8 70 17 139/71 95 Room Air 09/18/16 06:34 36.6 59 16 147/82 94 Room Air 09/18/16 04:34 36.7 58 18 151/83 96 Nasal Cannula 2.0 Humidified Oxygen 09/18/16 03:32 59 14 98 Nasal Cannula 2.0 09/18/16 02:30 36.6 65 14 138/82 98 Nasal Cannula 2.0 09/18/16 02:30 36.6 65 18 138/82 96 Nasal Cannula 2.0 Humidified Oxygen 09/18/16 00:30 36.7 60 16 129/78 97 Nasal Cannula 2.0 Humidified Oxygen 09/18/16 00:30 97 Nasal Cannula 2.0 Humidified Oxygen 09/17/16 23:29 62 14 96 Nasal Cannula 2.0 09/17/16 22:31 36.7 64 16 130/75 97 Nasal Cannula 2.0 Humidified Oxygen 09/17/16 20:30 Nasal Cannula 2.0 Humidified Oxygen 09/17/16 20:30 36.7 65 16 124/75 96 Nasal Cannula 2.0 Humidified Oxygen 09/17/16 19:51 76 14 96 Nasal Cannula 2.0 09/17/16 18:35 36.7 84 16 135/77 97 Nasal Cannula 2.0 09/17/16 18:35 36.7 84 16 135/77 97 Nasal Cannula 2.0 Humidified Oxygen 09/17/16 16:37 36.6 80 16 112/73 96 Nasal Cannula 2.0 Humidified Oxygen 09/17/16 16:28 36.6 80 16 112/73 96 Nasal Cannula 2.0 Humidified Oxygen 09/17/16 15:16 66 16 96 Nasal Cannula 2.0 09/17/16 14:35 36.6 79 16 153/73 96 Nasal Cannula 2.0 Humidified Air 09/17/16 14:35 36.6 79 16 153/73 96 Nasal Cannula 2.0 Humidified Air 09/17/16 13:37 36.6 64 16 133/88 97 Nasal Cannula 2.0 Humidified Oxygen 09/17/16 13:34 36.6 64 16 133/88 97 Nasal Cannula 2.0 Humidified Oxygen 09/17/16 12:35 36.6 73 16 151/79 99 Nasal Cannula 2.0 09/17/16 12:31 73 16 151/79 99 Nasal Cannula 2.0 (Alexandria Glover ., PA-C) Physical Exam General Appearance: WD/WN, no apparent distress, + obese (morbidly obese) Eyes: normal inspection, PERRL, EOMI ENT: normal ENT inspection, hearing grossly normal, pharynx normal Neck: supple, no JVD, trachea midline Respiratory/Chest: lungs clear, normal breath sounds, no respiratory distress Cardiovascular: regular rate, rhythm, no gallop, no murmur Abdomen: normal bowel sounds, non tender, soft Extremities: non-tender, normal inspection, no pedal edema Neurologic/Psychiatric: alert, normal mood/affect, oriented x 3 Skin: normal color, warm/dry, no rash (Alexandria Glover ., PA-C) Laboratory Results Last 24 Hours Test 09/17/16 14:27 09/17/16 16:57 09/17/16 20:48 09/18/16 00:00 White Blood Count 7.36 K/uL Red Blood Count 4.07 M/uL Hemoglobin 12.7 g/dL Hematocrit 36.9 % Mean Corpuscular Volume 90.7 fL Mean Corpuscular Hemoglobin 31.2 pg Mean Corpuscular Hemoglobin Concent 34.4 g/dl Platelet Count 134 K/uL Mean Platelet Volume 9.5 fL Neutrophils (%) (Auto) 91.1 % Lymphocytes (%) (Auto) 6.1 % Monocytes (%) (Auto) 2.4 % Eosinophils (%) (Auto) 0.3 % Basophils (%) (Auto) 0.0 % Neutrophils # (Auto) 6.70 K/uL Lymphocytes # (Auto) 0.45 K/uL Monocytes # (Auto) 0.18 K/uL Eosinophils # (Auto) 0.02 K/uL Basophils # (Auto) 0.00 K/uL RDW Standard Deviation 43.8 fL RDW Coefficient of Variation 13.3 % Immature Granulocyte % (Auto) 0.1 % Immature Granulocyte # (Auto) 0.01 K/uL Sodium Level 131 mmol/L Potassium Level 4.8 mmol/L Chloride Level 99 mmol/L Carbon Dioxide Level 21 mmol/L Anion Gap 11.0 mmol/L Blood Urea Nitrogen 10 mg/dl Creatinine 1.60 mg/dl Est Creatinine Clear Calc Drug Dose 52.7 ml/min Estimated GFR () 42.8 Estimated GFR (Non- 36.9 BUN/Creatinine Ratio 6.4 Random Glucose 225 mg/dl Estimated Average Glucose 111 mg/dl Hemoglobin A1c 5.5 % Calcium Level 8.2 mg/dl Bedside Glucose 184 mg/dl 158 mg/dl Urine Osmolality 175 mOms/kg Urine Random Sodium 37 mEq/L Test 09/18/16 05:03 09/18/16 07:55 09/18/16 08:30 09/18/16 11:21 White Blood Count 8.75 K/uL Red Blood Count 3.93 M/uL Hemoglobin 12.3 g/dL Hematocrit 35.2 % Mean Corpuscular Volume 89.6 fL Mean Corpuscular Hemoglobin 31.3 pg Mean Corpuscular Hemoglobin Concent 34.9 g/dl RDW Standard Deviation 41.8 fL RDW Coefficient of Variation 12.8 % Platelet Count 138 K/uL Mean Platelet Volume 10.0 fL Sodium Level 127 mmol/L Potassium Level 5.0 mmol/L Chloride Level 95 mmol/L Carbon Dioxide Level 23 mmol/L Anion Gap 9.0 mmol/L Blood Urea Nitrogen 11 mg/dl Creatinine 1.40 mg/dl Est Creatinine Clear Calc Drug Dose 60.2 ml/min Estimated GFR () 50.3 Estimated GFR (Non- 43.4 BUN/Creatinine Ratio 7.9 Random Glucose 163 mg/dl Calcium Level 8.3 mg/dl Thyroid Stimulating Hormone (TSH) 0.181 uIu/ml Bedside Glucose 215 mg/dl 243 mg/dl Osmolality 271 mOsm/kg Test 09/18/16 12:00 (Alexandria Glover, NUZHAT) Assessment and Plan 50 y/o female with a history of alpha-1 antitrypsin deficiency, s/p liver transplant (2010), DM II, HTN, hypothyroidism, h/o ulcerative colitis, and anxiety/depression who presents s/p C5-C7 discectomy and fusion with Dr. Cladwell on 09/17 for medical management. -Pain management, DVT prophylaxis, and PT/OT as per primary team -Cough/throat irritation likely secondary to ET tube Hyponatremia--pre op labs show serum sodium of 138 on 09/06/16 -Sodium on POD #0 low at 131. Pt's sodium has been up and down as an outpatient , which her PCP has been following. Sodium 133-135 in October of 2015 per EMR. -Repeat sodium 09/18 dropped to 127 -Serum osmolality low at 271, urine osmolality also low at 175. Urine random sodium WNL at 37 -IVF have been d/c'd -Spoke with nephrology Dr. Ordonez on the phone for guidance and to determine need for formal consult. She recommended repeating PRP and osmolalities in the afternoon. If sodium still below 130, keep overnight to monitor and can formally consult nephrology. If sodium 130 or above, may d/c and follow up with PCP. IVF and Celebrex may have been contributing. -TSH checked, low at 0.181. Pt does take Synthroid -Repeat serum sodium 128. Serum osmolality 272. Urine osmolality 169 -Nephrology formally consulted, appreciate recs S/p liver transplant secondary to alpha-1 antitrypsin deficiency -Continue tacrolimus 2 mg PO qam and 1 mg PO qhs Diabetes mellitus type 2--no HgbA1c on EMR -Hold metformin -Insulin sliding scale -Check BSGs q ac and qhs -Check HgbA1c HTN -Lisinopril held due to STEVE -POD #0 creatinine elevated at 1.6, pre-op creatinine had been 1.3 -Creatinine 1.4 on 09/18 -May resume lisinopril on discharge -Cover with hydralazine 10 mg IV q6h prn SBP >180 Hypothyroidism -Continue Synthroid 125 mcg PO qd. Will need to adjust dose with PCP Anxiety/depression -Continue Prozac 20 mg PO qd Dispo -Will keep pt at least one more day to continue to monitor sodium Thank you for this consultation. We will continue to follow. (Alexandria Glover ., PABerkleyC) Attending Attestation: Pt seen/examined, chart reviewed, and care plan d/w PA Alexandria Glover. I agree with the ellis components of her documentation. Pt feels well today. No BM but +flatus. Eating well. Mild neck pain. No dysphagia. No sob/cp/abd pain. VSS, afebrile gen - NAD neck - c-spine collar in place, dressing in place mouth - MMM heart - RRR lungs - CTA b/l abd - soft, NT ext - no edema A/P: 1. hyponatremia - low urine osm with low SG on u/a - polydipsia? agree with fluid restriction to 1500cc/day repeat BMP in am per nephrology Dr. Ordonez to f/u on the BMP tomorrow 2. HTN - resume JOHNNY 3. T2DM - resume metformin 4. hypothyroidism - TSH mildly suppressed; recommended repeat TSH in the next few weeks if still low then reduce synthroid dose I spoke with Dr. Ordonez this afternoon and she felt comfortable with discharge as a repeat BMP will be obtained in the AM. I agree with that plan. Kevin Thornton MD (Kevin Thornton MD)
[2016-09-18 13:07] LABS: CALCIUM 8.6 mg/dl (8.5-10.1); CREATININE 1.3 mg/dl (0.60-1.20); POTASSIUM 4.5 mmol/L (3.5-5.1)
--- NOTE | 2016-09-18 13:56 | Anesthesiology Progress Note ---
Anesthesia Post Op Note Date & Time Sep 18, 2016 at 13:56 Vital Signs Pain Intensity: 3.0 Vital Signs Past 12 Hours Date Time Temp Pulse Resp B/P Pulse Ox O2 Delivery O2 Flow Rate FiO2 09/18/16 11:37 36.6 52 19 167/91 96 Room Air 09/18/16 11:23 56 14 95 Room Air 09/18/16 08:32 36.8 51 14 95 Room Air 09/18/16 07:51 51 14 95 Room Air 09/18/16 07:32 Room Air 09/18/16 07:05 36.8 70 17 139/71 95 Room Air 09/18/16 06:34 36.6 59 16 147/82 94 Room Air 09/18/16 04:34 36.7 58 18 151/83 96 Nasal Cannula 2.0 Humidified Oxygen 09/18/16 03:32 59 14 98 Nasal Cannula 2.0 09/18/16 02:30 36.6 65 14 138/82 98 Nasal Cannula 2.0 09/18/16 02:30 36.6 65 18 138/82 96 Nasal Cannula 2.0 Humidified Oxygen Notes Mental Status: alert / awake / arousable, participated in evaluation Pt Amnestic to Procedure: Yes Nausea / Vomiting: adequately controlled Pain: adequately controlled Airway Patency, RR, SpO2: stable & adequate BP & HR: stable & adequate Hydration State: stable & adequate Anesthetic Complications: no major complications apparent
--- NOTE | 2016-09-18 15:31 | Nephrology Consultation ---
Nephrology Consultation Date & Providers Date of Consultation: Sep 18, 2016. Primary Care Provider: Jose Armando Mayes D.O. Referring Provider: Reason for Consultation Evaluation and management for hyponatremia History of Present Illness Andra is a 50-year-old female with past medical history significant for hypertension, history of liver transplant for alpha-1 antitrypsin deficiency, history of cervical spinal stenosis admit to the hospital for elective spinal surgery. Nephrologic consult was requested as she developed hyponatremia and postoperative period. Electronic medical records including labs and imaging are reviewed in detail during patient's visit. Record review shows Andra had prior history of mild hyponatremia in october 2015 when serum sodium was 133-134. Pre operative lab on 09/06/16 showed normal serum sodium at 138. Had C5-C7 Anterior Cervical Discectomy and Fusion with Allograft electively yesterday and was uneventful. No hypotensive episode or significant blood loss. Postoperative course was uncomplicated with normal recovery. Repeat lab after surgery showed serum sodium dropped to 131 which was repeated this morning when sodium dropped further to 127. Urine osmolality was appropriately low at 161 to 172. She was on IV fluid which was stopped this morning. Received few doses of Celebrex. Has been on SSRI for long time which has been continued. Unclear whether she has prior history of chronic kidney disease, cr was 1.3 on pre op lab on 09/06/16 but developed acute kidney injury in postop period as well when creatinine peaked to 1.6, but started to improve and creatinine was 1.3 this morning. She was on lisinopril 5 milligrams p.o. daily which she has been on hold. She is a ex smoker, chest x-ray personally reviewed and was otherwise unremarkable. Has significant f/H of malignancy including breast, colon and lung but no personal history of malignancy or recent weight loss. H/O liver transplant on IS with tacrolimus, previous h/o colon resection for IBD. Allergies Coded Allergies: Adhesives (Verified Allergy, Mild, RED ITCHY, 09/17/16) Aspartame (Verified Allergy, Mild, SEIZURE, 09/17/16) Perflutren (Verified Allergy, Mild, MASSIVE BACK PAIN, 09/17/16) Propylene Glycol (Verified Allergy, Mild, MASSIVE BACK PAIN, 09/17/16) Inpatient Medications Current Inpatient Medications Medications (Trade) Dose Ordered Sig/Flor Route Start Time Stop Time Status Last Admin Dose Admin Miscellaneous (Remove Transderm-Scop Patch) 1 ea Q72H N/A 09/20/16 06:00 09/20/16 06:01 Miscellaneous Information (Check Scopolamine Patch Placement) 1 ea QS N/A 09/17/16 16:00 09/19/16 05:59 09/18/16 07:04 1 EA Fluoxetine HCl (Prozac Cap) 20 mg QAM PO 09/18/16 09:00 10/18/16 08:59 09/18/16 08:48 20 MG Levothyroxine Sodium (Synthroid Tab) 125 mcg DAILYBB PO 09/18/16 06:00 10/18/16 05:59 09/18/16 06:13 125 MCG Lisinopril (Zestril Tab) 5 mg QAM PO 09/18/16 09:00 10/18/16 08:59 Future Hold Sumatriptan Succinate (Imitrex Tab) 100 mg DAILY PRN PO 09/17/16 10:00 10/17/16 09:59 Tacrolimus (Prograf Cap) 1 mg HS PO 09/17/16 21:00 10/17/16 20:59 09/17/16 20:30 1 MG Tacrolimus (Prograf Cap) 2 mg QAM PO 09/18/16 09:00 10/18/16 08:59 09/18/16 08:48 2 MG Racepinephrine (Raccemic Epinephrine 2.25% 0.5ML Neb) 0.5 ml ONE PRN INH 09/17/16 10:00 10/17/16 09:59 Hydromorphone HCl (Dilaudid Inj) 0.5mg IV for moder... Q3H PRN IV 09/17/16 10:00 10/01/16 09:59 Ondansetron HCl (Zofran Inj) 4 mg Q6 PRN IV 09/17/16 10:00 10/17/16 09:59 Lorazepam 0.5 mg 0.5 mg Q8H PRN PO 09/17/16 10:00 10/17/16 09:59 Lorazepam/Syringe (Ativan Inj/ Syringe) 1 ml @ 1 mls/min Q8H PRN IV 09/17/16 10:00 10/17/16 09:59 Diphenhydramine HCl (Benadryl Inj) 25 mg Q6H PRN IV 09/17/16 10:00 10/17/16 09:59 Oxycodone HCl 5mg for pain scale 4-6 1... Q4H PRN PO 09/17/16 10:00 10/01/16 09:59 09/18/16 11:56 10 MG Dexamethasone Sodium Phosphate/ Syringe (Decadron Inj/ Syringe) 2 ml @ 1 mls/min ONE PRN IV 09/17/16 10:00 10/17/16 09:59 Naloxone HCl (Narcan Inj) 0.1 mg Q5M PRN IV 09/17/16 10:00 10/17/16 09:59 Miscellaneous (Iv Fluids Completed) 1 ea PRN PRN N/A 09/17/16 11:45 09/17/17 11:44 Hydralazine HCl (HydrALAZINE INJ) 10 mg Q6H PRN IV. 09/17/16 13:30 10/17/16 13:29 Insulin Aspart (novoLOG ASPART) SLIDING SCALE G... ACHS SC 09/17/16 17:15 10/17/16 17:14 09/17/16 17:35 1 UNITS Glucose (Glucose 40% Gel) 15-30 GRAMS 15 GRAMS... UD PRN PO 09/17/16 13:30 10/17/16 13:29 Glucose (Glucose Chew Tab) 4-8 Tablets 4 Tabl... UD PRN PO 09/17/16 13:30 10/17/16 13:29 Dextrose (Dextrose 50% 50ML Syringe) 25-50ML OF 50% DW IV FOR... UD PRN IV 09/17/16 13:30 10/17/16 13:29 Glucagon (Glucagon Inj) 1 mg UD PRN SQ 09/17/16 13:30 10/17/16 13:29 Family History Cancer (colon, breast, lung) Diabetes mellitus Hypertension Myocardial infarction at age less than 60 Stroke Social History Smoking Status: Former Smoker (quit 16 years ago) Smokeless Tobacco Use: No Alcohol Use: none Drug Use: none Marital Status: Occupation: unemployed Review of Systems A complete review of systems was performed. Pertinent positives are noted above. All other systems are negative. Physical Exam Date Time Temp Pulse Resp B/P Pulse Ox O2 Delivery O2 Flow Rate FiO2 09/18/16 11:37 36.6 52 19 167/91 96 Room Air 09/18/16 11:23 56 14 95 Room Air 09/18/16 08:32 36.8 51 14 95 Room Air 09/18/16 07:51 51 14 95 Room Air 09/18/16 07:32 Room Air 09/18/16 07:05 36.8 70 17 139/71 95 Room Air 09/18/16 06:34 36.6 59 16 147/82 94 Room Air 09/18/16 04:34 36.7 58 18 151/83 96 Nasal Cannula 2.0 Humidified Oxygen 09/18/16 03:32 59 14 98 Nasal Cannula 2.0 09/18/16 02:30 36.6 65 14 138/82 98 Nasal Cannula 2.0 09/18/16 02:30 36.6 65 18 138/82 96 Nasal Cannula 2.0 Humidified Oxygen 09/18/16 00:30 36.7 60 16 129/78 97 Nasal Cannula 2.0 Humidified Oxygen 09/18/16 00:30 97 Nasal Cannula 2.0 Humidified Oxygen 09/17/16 23:29 62 14 96 Nasal Cannula 2.0 09/17/16 22:31 36.7 64 16 130/75 97 Nasal Cannula 2.0 Humidified Oxygen 09/17/16 20:30 Nasal Cannula 2.0 Humidified Oxygen 09/17/16 20:30 36.7 65 16 124/75 96 Nasal Cannula 2.0 Humidified Oxygen 09/17/16 19:51 76 14 96 Nasal Cannula 2.0 09/17/16 18:35 36.7 84 16 135/77 97 Nasal Cannula 2.0 09/17/16 18:35 36.7 84 16 135/77 97 Nasal Cannula 2.0 Humidified Oxygen 09/17/16 16:37 36.6 80 16 112/73 96 Nasal Cannula 2.0 Humidified Oxygen 09/17/16 16:28 36.6 80 16 112/73 96 Nasal Cannula 2.0 Humidified Oxygen 09/17/16 15:16 66 16 96 Nasal Cannula 2.0 09/17/16 14:35 36.6 79 16 153/73 96 Nasal Cannula 2.0 Humidified Air 09/17/16 14:35 36.6 79 16 153/73 96 Nasal Cannula 2.0 Humidified Air GENERAL: middle aged female, AAA x 3, obese, pleasant, healthy-appearing, not in any distress. HEENT: Atraumatic, normocephalic. NECK: Supple, no JVD, no carotid bruit appreciated. ENT: No sinus tenderness MOUTH and THROAT: Moist oral mucosa, no oral ulcer or pharyngeal erythema RESPIRATORY: Normal breathing efforts, no accessory muscle use, clear to auscultation bilaterally, no wheezes or rales. CARDIOVASCULAR: S1, S2 normal, rate rhythm regular. ABDOMEN: Soft, nontender, positive bowel sound. MUSCULOSKELETAL: No CVA tenderness. No joint swelling, erythema or tenderness. Normal range of motion. SKIN: No skin rash EXTREMITY: No lower extremity edema NEURO: No gross focal neurological deficit, speech fluent. PSYCHIATRY: Normal mood and judgment Laboratory Results Last 24 Hours Test 09/17/16 14:27 09/17/16 16:57 09/17/16 20:48 09/18/16 00:00 White Blood Count 7.36 K/uL Red Blood Count 4.07 M/uL Hemoglobin 12.7 g/dL Hematocrit 36.9 % Mean Corpuscular Volume 90.7 fL Mean Corpuscular Hemoglobin 31.2 pg Mean Corpuscular Hemoglobin Concent 34.4 g/dl Platelet Count 134 K/uL Mean Platelet Volume 9.5 fL Neutrophils (%) (Auto) 91.1 % Lymphocytes (%) (Auto) 6.1 % Monocytes (%) (Auto) 2.4 % Eosinophils (%) (Auto) 0.3 % Basophils (%) (Auto) 0.0 % Neutrophils # (Auto) 6.70 K/uL Lymphocytes # (Auto) 0.45 K/uL Monocytes # (Auto) 0.18 K/uL Eosinophils # (Auto) 0.02 K/uL Basophils # (Auto) 0.00 K/uL RDW Standard Deviation 43.8 fL RDW Coefficient of Variation 13.3 % Immature Granulocyte % (Auto) 0.1 % Immature Granulocyte # (Auto) 0.01 K/uL Sodium Level 131 mmol/L Potassium Level 4.8 mmol/L Chloride Level 99 mmol/L Carbon Dioxide Level 21 mmol/L Anion Gap 11.0 mmol/L Blood Urea Nitrogen 10 mg/dl Creatinine 1.60 mg/dl Est Creatinine Clear Calc Drug Dose 52.7 ml/min Estimated GFR () 42.8 Estimated GFR (Non- 36.9 BUN/Creatinine Ratio 6.4 Random Glucose 225 mg/dl Estimated Average Glucose 111 mg/dl Hemoglobin A1c 5.5 % Calcium Level 8.2 mg/dl Bedside Glucose 184 mg/dl 158 mg/dl Urine Osmolality 169 mOms/kg Urine Random Sodium 37 mEq/L Test 09/18/16 05:03 09/18/16 07:55 09/18/16 08:30 09/18/16 11:21 White Blood Count 8.75 K/uL Red Blood Count 3.93 M/uL Hemoglobin 12.3 g/dL Hematocrit 35.2 % Mean Corpuscular Volume 89.6 fL Mean Corpuscular Hemoglobin 31.3 pg Mean Corpuscular Hemoglobin Concent 34.9 g/dl RDW Standard Deviation 41.8 fL RDW Coefficient of Variation 12.8 % Platelet Count 138 K/uL Mean Platelet Volume 10.0 fL Sodium Level 127 mmol/L Potassium Level 5.0 mmol/L Chloride Level 95 mmol/L Carbon Dioxide Level 23 mmol/L Anion Gap 9.0 mmol/L Blood Urea Nitrogen 11 mg/dl Creatinine 1.40 mg/dl Est Creatinine Clear Calc Drug Dose 60.2 ml/min Estimated GFR () 50.3 Estimated GFR (Non- 43.4 BUN/Creatinine Ratio 7.9 Random Glucose 163 mg/dl Calcium Level 8.3 mg/dl Thyroid Stimulating Hormone (TSH) 0.181 uIu/ml Bedside Glucose 215 mg/dl 243 mg/dl Osmolality 271 mOsm/kg Test 09/18/16 12:25 Sodium Level 128 mmol/L Potassium Level 4.5 mmol/L Chloride Level 95 mmol/L Carbon Dioxide Level 22 mmol/L Anion Gap 11.0 mmol/L Blood Urea Nitrogen 10 mg/dl Creatinine 1.30 mg/dl Est Creatinine Clear Calc Drug Dose 64.8 ml/min Estimated GFR () 55.0 Estimated GFR (Non- 47.5 BUN/Creatinine Ratio 8.0 Random Glucose 202 mg/dl Osmolality 272 mOsm/kg Calcium Level 8.6 mg/dl Impression (1) Hyponatremia (2) Hypertension (3) STEVE (acute kidney injury) (4) Liver transplant status 50 y o F with HTN, STEVE, liver transplant status and s/p back surgery for spinal stenosis, developed acute hyponatremia in post op period. S Na was 138 a week prior and post op dropped to 131 and has been staying low, 127 this am. urine Osm appropriately low at 170. She has been on IV fluid which was stopped. Received celebrex and has been on SSRI. Record review showed had h/o hyponatremia before as well. CXR was unremarkable. Prior Mammogram and colonoscopy was normal. No personal h/o malignancy, no recent h/o weight loss. Hyponatremia seems to be secondary to hypervolemia and hyperglycemia ( corrected Na 131, still low ) with adequate renal response with high UO and low urine osmolality. Recommendations --limit free water intake to 1500ml/d --avoid further IV fluid --expect Na to slowly start to improve. --As BP running high , OK to resume lisinopril --since pt is currently otherwise asymptomatic with stable vitals ok to be discharged this afternoon, pt will have BMP done tomorrow locally and I will review the result and contact pt if needed. --advised pt to avoid NSAId, since she is not allowed to take tylenol, OK to give tramadol or oxycodone as needed for pain controll. Thank you for allowing me to participate in your patient's care. It was a pleasure to see Andra. This chart was completed utilizing [employer] Speech and voice recognition software. Grammatical errors, random word insertions, pronoun errors and incomplete sentences are occasional consequences of this system. Any questions or concerns about the content, text or information contained within the body of this dictation should be addressed directly to the physician for clarification.
--- NOTE | 2016-10-01 10:01 | DISCHARGE SUMMARY ---
PREOPERATIVE DIAGNOSIS: C5-C6, C6-C7 disc degeneration, C5-C6 disc protrusion, C6-C7 foraminal stenosis. POSTOPERATIVE DIAGNOSIS: Same. PROCEDURE: ACDF C5-C6, C6-C7. SURGEON: Dr. Bryon Parsons. INFORMATION ASSURANCE OFFICER: Elliott Souza PA-C. HISTORY OF PRESENT ILLNESS: Please refer to EMR. HOSPITAL COURSE: On 09/17/2016 Ms. Byole was admitted to [facility] with the above diagnoses. She was taken to preoperative holding where she was identified, evaluated and cleared for surgical management. She was transported to the operating room, introduced with general endotracheal anesthesia. Sterile conditions were set and she successfully underwent a C5-C7 ACDF without complication or issue. She was awakened in stable and satisfactory condition, placed in hard collar immobilization and transported to postoperative recovery. Here her vital signs and pain were monitored and managed. The patient remained medically stable and was then taken to the orthopedic floor for continued postoperative care. Throughout her stay, pain was well managed. Vital signs remained stable. There were no postoperative complications or issues including breathing or swallowing difficulty. She had a restful night. She was evaluated on 09/18/2016 and indicated for return home. On this date, she was discharged from [facility]. DISPOSITION: Home. DISPOSITION CONDITION: Stable. NOTED COMPLICATIONS OR ISSUES: Zero. DISCHARGE INSTRUCTIONS: Please refer to EMR.
== END 2016-09-18 16:40 | disposition home or self-care (01) | DRG 472 ==
LOC: ENRESERVTM → ENRESERVDT → C.ACU 04:46 → INTOOBSV 09:53 → C.3E 09:53 → OBSVTOIN 09-18 16:11
PROVIDERS: ADMIT Orthopaedic Surgery Orthopaedic Surgery of the Spine; ATTEND Orthopaedic Surgery Orthopaedic Surgery of the Spine
PROC: 0RG20A0 Fusion of 2 or more Cervical Vertebral Joints with Interbody Fusion Device, Anterior Approach, Anterior Column, Open Approach (ICD-10-PCS; principal; 2016-09-17 07:30)
PROC: 0RG2070 Fusion of 2 or more Cervical Vertebral Joints with Autologous Tissue Substitute, Anterior Approach, Anterior Column, Open Approach (ICD-10-PCS; principal; 2016-09-17 07:30)
PROC: 0RT30ZZ Resection of Cervical Vertebral Disc, Open Approach (ICD-10-PCS; principal; 2016-09-17 07:30)
DX: M50.222 Other cervical disc displacement at C5-C6 level (principal); Z94.4 Liver transplant status; K51.90 Ulcerative colitis, unspecified, without complications; N17.9 Acute kidney failure, unspecified; E87.1 Hypo-osmolality and hyponatremia; M50.323 Other cervical disc degeneration at C6-C7 level; M50.322 Other cervical disc degeneration at C5-C6 level; M48.02 Spinal stenosis, cervical region; E88.01 Alpha-1-antitrypsin deficiency; Z98.1 Arthrodesis status; E11.9 Type 2 diabetes mellitus without complications; E03.9 Hypothyroidism, unspecified; Z83.3 Family history of diabetes mellitus; Z87.891 Personal history of nicotine dependence